=== PATIENT | female | born 1960 | race Two or more races ===

== ENCOUNTER → 2019-11-10 | Emergency (ER) | payer OTHER ==
[~2019-11-10] VITALS: Ht 154.9 cm; Wt 56.7 kg
[~2019-11-10] MED LIST: CIPRO500 MG PO; KETO10TA2 PO; TAMS0.4C PO; URIN D.S. TABL1 EACH PO
== END | disposition home or self-care (01) ==
LOC: ER 13:22
DX: N39.0 Urinary tract infection, site not specified (principal); N20.2 Calculus of kidney with calculus of ureter

== ENCOUNTER 2019-12-05 11:07 | Inpatient (IN) | payer OTHER ==
[~2019-12-05] VITALS: Ht 152.4 cm; Wt 54.0 kg
[2019-12-05] MEDS ORDERED: FORTAMET500 MG (11:13)
[2019-12-05] MEDS ORDERED: AMBIEN10 MG (11:13)
[2019-12-05] MEDS ORDERED: ARMOUR THYROID15 MG (11:14)
== END 2019-12-06 17:49 | disposition home or self-care (01) | DRG 661 ==
LOC: ER 11:07 → SEC-K 16:58 → SURG 16:58
PROVIDERS: ADMIT Surgery
PROC: 0T778DZ Dilation of Left Ureter with Intraluminal Device, Via Natural or Artificial Opening Endoscopic (ICD-10-PCS; 2019-12-06)
PROC: 0TC78ZZ Extirpation of Matter from Left Ureter, Via Natural or Artificial Opening Endoscopic (ICD-10-PCS; principal; 2019-12-06 09:00)
DX: N13.2 Hydronephrosis with renal and ureteral calculous obstruction (principal); E03.9 Hypothyroidism, unspecified